=== PATIENT | male | born 1965 | race Caucasian/White ===

== ENCOUNTER 2020-09-28 13:29 | Outpatient (RCR) | payer OTHER, SELFPAY ==
[2020-09-28] MEDS: COVID-19 VACC, MRNA(PFIZER)/PF 30 MCG/0.3 ML SYRINGE IM (09:58)
[2020-10-19] MEDS: COVID-19 VACC, MRNA(PFIZER)/PF 30 MCG/0.3 ML SYRINGE IM (09:16)
== END 2020-09-28 23:59 ==
LOC: IMMUN 13:29
PROVIDERS: PCP Family Medicine; Visit Provider Family Medicine
DX: Z23 Encounter for immunization (principal)
CPT/HCPCS: 0001A; 0002A; 91300

== ENCOUNTER 2020-10-31 21:08 | Emergency (ER) | payer OTHER, SELFPAY ==
[2020-10-31 21:08] VITALS: BP 151/83; PULSE 67; RESP 16; TEMP 36.4; O2SAT 100; BMI 25.1
--- NOTE | 2020-10-31 21:14 | CT_ITS ---
STUDY: CT ABDOMEN AND PELVIS WITHOUT CONTRAST REASON FOR EXAM: Male, 55 years old. Kidney Stone RADIATION DOSAGE (If Supplied By Facility): CTDIvol = ( 6.75 ) mGy, DLP = ( 345.48 ) mGycm TECHNIQUE: Transaxial images were obtained from the dome of the diaphragm to the symphysis pubis without oral contrast, and without intravenous contrast. Sagittal and coronal images were reconstructed. Individualized dose optimization techniques were used for this CT. COMPARISON: None. FINDINGS: The visualized lung bases are unremarkable. The visualized portions of the heart are within normal limits. Normal liver. Normal gallbladder and extrahepatic biliary system. Normal spleen. Normal pancreas. Normal bilateral adrenal glands. Small nonobstructing right nephrolith. Left hydronephrosis and left hydroureter with a stone at the left UPJ measuring 4.2 mm. Normal visualized stomach. Normal small intestine. Normal colon. The appendix is visualized and appears normal. Normal abdominal aorta. Normal inferior vena cava. Normal retroperitoneum. Normal urinary bladder. Normal abdominal wall. Normal osseous structures. CT/Abdomen/Pelvis without Cont IMPRESSION: Left hydronephrosis and left hydroureter with stone at the left UPJ Electronically Signed: Yovany Olea DO at 22:32 EDT Tel , Service support ,
--- NOTE | 2020-10-31 21:15 | ED.VIS.GEN ---
History of Present Illness Chief Complaint: Flank Pain Informant: Patient Onset: Days - Onset Friday Context: Sudden Onset Timing: Intermittent, Waxes and wanes Quality: Colicky left flank pain that radiates anteriorly Current Severity: Moderate Maximum Severity: Severe Worsened by: Nothing Relieved by: Nothing Associated Symptoms: Nausea and vomiting on Friday Narrative: Patient 55-year-old male with history of hypertension and history of ureterolithiasis 10 years ago who presents with left flank pain similar to the pain experienced 10 years ago. He reports nausea and vomiting on Friday. He has no other complaints. There is no history of trauma. He has not noted a rash. Prior similar symptoms: Yes - Ureterolithiasis 10 years ago Recent Illness/Hospitalization: No - Past Medical History (1) History of hypertension Status: Acute (2) History of ureterolithiasis Status: Acute Past Medical History - Allergies and Home Meds Allergies/Adverse Reactions: Allergies No Known Allergies Allergy (Verified 10/31/20 21:10) Primary Care Physician: Chanud Gregory III, MD [Primary Care Provider] - Prior records reviewed: Yes Surgical History: no surgical history Lives: Spouse/ Significant Other Smoking Status: Never smoker Alcohol: Rare Drugs: None Review of Systems General: Denies: Chills, Fever, Sweats Eyes: Denies: Visual changes - bilaterally, Blurred Vision - bilaterally ENT: Denies: Right ear pain, Rhinorrhea Cardiovascular: Denies: Chest pain, Palpitations Respiratory: Denies: Dyspnea, Cough Gastrointestinal: Reports: Abdominal pain, Nausea, Vomiting. Denies: Melena, Hematochezia Genitourinary: Denies: Dysuria, Hematuria, Frequency Musculoskeletal: Reports: Back pain. Denies: Myalgias, Arthralgias, Neck pain, Swelling, Extremity Pain, -, - Skin: Denies: Rash, Wounds Endocrine: Denies: Polyuria, Polydipsia Hematologic: Denies: Easy bruising, Easy bleeding Physical Exam Vital Signs/Narrative: Vital Signs Temp Pulse Resp BP Pulse Ox 10/31/20 21:08 97.5 F L 67 16 151/83 H 100 Inital Vital Signs reviewed: Yes General: Well nourished, Well developed, Acute Distress Head: Normocephalic, Atraumatic Eyes: Perrl, EOMI. Negative for: Pale conjunctiva, Scleral icterus Neck: Supple, Nontender, No lymphadenopathy, No JVD Cardiovascular: Regular rate, Regular rhythm, No murmurs, Normal S1, Normal S2 Respiratory: No distress, CTA bilaterally, Chest nontender Abdomen: Soft, Nontender, Nondistended, Normal bowel sounds, No masses Rectal: Deferred Back: Nontender, Normal Inspection. Negative for: CVA tenderness Extremities: Nontender, No edema Skin: Normal color, No rash Neurological: Alert, Oriented x3, Cranial nerves II-XII grossly intact, Normal Strength, Normal Sensation Psychological: Normal affect Diagnostic/Tx/Re-eval Impressions Abdomen/Pelvis CT 10/31/20 21:14 IMPRESSION: Left hydronephrosis and left hydroureter with stone at the left UPJ Electronically Signed: Yovany Olea DO at 22:32 EDT Tel , Service support , 10/31/20 21:14 Abdomen/Pelvis without Cont [CT] Stat Laboratory Results 10/31/20 10/31/20 10/31/20 21:28 21:28 21:52 WBC 6.8 RBC 4.26 L Hgb 13.4 Hct 38.9 L MCV 91.3 MCH 31.5 MCHC 34.4 RDW Std Deviation 40.2 RDW Coeff of Buzz 12.3 Plt Count 219 MPV 11.1 Immature Gran % (Auto) 0.300 Neut % (Auto) 44.0 L Lymph % (Auto) 44.5 H [place] % (Auto) 7.8 Eos % (Auto) 2.5 Baso % (Auto) 0.9 Absolute Neuts (auto) 3.0 Absolute Lymphs (auto) 3.02 Nucleated RBC % 0 Sodium 140 Potassium 3.4 L Chloride 104 Carbon Dioxide 32.0 Anion Gap 4 L BUN 17 Creatinine 1.23 Estim Creat Clear Calc 70.89 Est GFR (MDRD) Af Amer 79 Est GFR (MDRD) Non-Af 65 BUN/Creatinine Ratio 13.8 Glucose 115 H Calcium 9.2 Urine Color Yellow Urine Clarity Clear Urine pH 6.0 Ur Specific [place] 1.020 Urine Protein Negative Urine Glucose (UA) Normal Urine Ketones Negative Urine Occult Blood 50 H Urine Nitrite Negative Urine Bilirubin Negative Urine Urobilinogen Normal Ur Leukocyte Esterase Negative Urine RBC 5-10 SEEN Urine WBC 0 SEEN Ur Squamous Epith Cells 0 SEEN Urine Bacteria 0 SEEN Urine Mucus 0 SEEN Urine is remarkable for blood without evidence of infection. Renal function is normal. CBC and differential are normal. Plan is to discharge to home and referred to urology. - Medical Decision Making IV was established and patient was medicated with Zofran, Toradol and morphine. History is consistent with ureteral stone. Will obtain UA and blood work to assess for infection and CT of the flank to assess for obstruction. ED Disposition - Plan for ED Patient: Disposition: Home or Assisted Living Diagnosis: Hydronephrosis with urinary obstruction due to ureteral calculus Instructions: ED Kidney Stone w/ Colic Prescriptions: Naproxen [Naprosyn] 500 mg PO BID #14 tablet Prescription Printed Oxycodone HCl/Acetaminophen [Percocet 5/325] 1 tablet PO Q6H PRN PRN 5 Days #20 tab PRN Reason: Left flank pain Prescription Printed Referrals: Chandu Gregory III, MD [Primary Care Provider] - Rodriguez Skelton MD [STAFF PHYSICIAN] - 5-7 Days
[2020-10-31] MEDS: 0.9% Normal Saline 1,000 ML 250 ML IV (21:27)
[2020-10-31] MEDS: Ketorolac 15 MG/ML Vial IV (21:28)
[2020-10-31] MEDS: Ondansetron 4 MG/2 ML Vial IV (21:28)
[2020-10-31] MEDS: Morphine 4 MG/ML Syringe IV ×2 (21:30→22:44)
[2020-10-31 21:47] LABS: Absolute Lymphocyte Count 3.02 X10^3/uL (0.83-4.51); Basophil# 0.06 X10^3/uL; Basophil% 0.9 % (0-1); Eosinophil# 0.17 X10^3/uL; Eosinophils% 2.5 % (0-5); Hematocrit 38.9 % (40-54); Hemoglobin 13.4 g/dL (13.0-16.5); Lymphocyte # 3.02 X10^3/ul (0.83-4.51); Lymphocyte % 44.5 % (19-41); Mean Corp Hgb Conc 34.4 g/dL (32-36); Mean Corpuscular Hgb 31.5 pg (27.0-32.0); Mean Corpuscular Volume 91.3 fL (80-94); Mean Platelet Vol. 11.1 fl (6.2-12.0); Monocyte# 0.53 X10^3/uL; Monocyte% 7.8 % (0-10); NRBC Flagged by Analyzer 0 % (0-5); Neutrophil # 2.99 X10^3/uL (2.7-7.7); Platelet Count 219 K/mm3 (150-450); RBC Distribution Width CV 12.3 % (11.6-14.6); RBC Distribution Width SD 40.2 fl (35.1-43.9); Red Blood Count 4.26 M/mm3 (4.6-6.2); White Blood Count 6.8 K/mm3 (4.4-11.0)
[2020-10-31 21:58] LABS: Bacteria 0 SEEN /hpf (None Seen); Mucous, Urine 0 SEEN /hpf (<or=2+); Squamous Epithelial Cells - UA 0 SEEN /hpf (0-5); White Blood Cells 0 SEEN /hpf (0-5)
[2020-10-31 22:00] LABS: Anion Gap 4 (5-15); BUN 17 mg/dL (7-18); BUN/Creat Ratio 13.8 RATIO (10-20); Calcium,Total 9.2 mg/dL (8.5-10.1); Chloride 104 mmol/L (98-107); Creatinine, Serum 1.23 mg/dL (0.70-1.30); EST Glomerular Filtration Rate 65 mL/min (>60); Est Glom Filt Rate - Afr Amer 79 mL/min (>60); Estimated Creatinine Clearance 70.89 ml/min; Glucose 115 mg/dL (74-106); Potassium 3.4 mmol/L (3.5-5.1); Sodium Level 140 mmol/L (136-145)
[2020-10-31 22:10] LABS: Color, Urine Yellow (Yellow); Glucose, Dipstick Normal (Normal); Ketone-Dipstick Negative (Negative); Leukocyte Esterase-Dipstick Negative /ul (Negative); Nitrite-Dipstick Negative (Negative); Occult Blood-Urine 50 /ul (Negative); Protein-Dipstick Negative (Negative); Urine Bilirubin Dipstick Negative (Negative); Urine Clarity Clear (Clear); Urine Urobilinogen Normal (Normal)
[2020-10-31 22:19] LABS: Red Blood Cells-Urine 5-10 SEEN /hpf (0-5)
[2020-10-31] MEDS: HYDROmorphone 0.5 MG/0.5 ML SYRINGE IV (23:23)
[2020-10-31 23:24] VITALS: BP 130/83; PULSE 60; RESP 18; O2SAT 99
== END 2020-10-31 23:46 | disposition home or self-care (01) ==
LOC: ED 21:40
PROVIDERS: Emergency Provider Emergency Medicine; PCP Family Medicine
DX: N13.2 Hydronephrosis with renal and ureteral calculous obstruction (principal); I10 Essential (primary) hypertension; Z87.442 Personal history of urinary calculi; Z79.899 Other long term (current) drug therapy
CPT/HCPCS: 74176; 80048; 81001; 85025; 96361; 96374; 96375; 96376; 99283; J7030; A4216; J2405